=== PATIENT | female | born 1995 | race Hispanic/Latino ===

== ENCOUNTER 2024-12-22 18:23 | Emergency (ER) | payer SELFPAY ==
[~2024-12-22] VITALS: Ht 167.6 cm; Wt 90.7 kg
[2024-12-22 19:44] LABS: BASOPHILS % 0.3 % (0.0-1.0); EOSINOPHILS % 0.7 % (0.0-6.0); LYMPHOCYTES % 25.1 % (18.0-39.1); MONOCYTES % 5.5 % (4.4-11.3); NEUTROPHILS % 68.2 % (38.7-80.0); RED CELL DISTRIBUTION WIDTH 13.6 % (11.7-14.4)
[2024-12-22 20:05] LABS: EST GLOMERULAR FILTRATION RATE 123.0 ML/MIN (>=60)
[2024-12-22 20:08] LABS: LEUKOCYTE ESTERASE ,URINE NEGATIVE (NEGATIVE); PREGNANCY TEST, URINE POSITIVE (NEGATIVE); PROTEIN,URINE DIPSTICK NEGATIVE (NEGATIVE); URINE UROBILINOGEN 0.2 mg/dL (0.2 - 1)
[2024-12-22 20:19] LABS: EPITHELIAL CELLS,URINE MANY /LPF
[2024-12-22] MEDS: ONDANSETRON HCL INJ 2MG/ML 2ML 2 MG/ML VIAL IV STA (20:59)
[2024-12-22] MEDS: SODIUM CHLORIDE 0.9% 1000ML 1,000 ML IV STA ×2 (20:59→22:10)
[2024-12-22 21:48] VITALS: PULSE 80; RESP 15; TEMP 98.7
[2024-12-22] MEDS ORDERED: CEPHALEXIN500 MG PO (22:47)
[2024-12-22] MEDS: ACETAMINOPHEN 325 MG TAB PO STA (22:50)
[2024-12-22 22:58] VITALS: BP 112/62; PULSE 74; RESP 18; TEMP 98.6; O2SAT 98
== END 2024-12-22 23:00 | disposition home or self-care (01) ==
LOC: ER 18:31
DX: O23.41 Unspecified infection of urinary tract in pregnancy, first trimester (principal); R10.30 Lower abdominal pain, unspecified; M54.50 Low back pain, unspecified
CPT/HCPCS: 36415; 80053; 81001; 81025; 83690; 84702; 85025; 99284; J2405; J7030